=== PATIENT | female | born 1965 ===

== ENCOUNTER 2022-02-11 16:01 | Emergency (ER) | payer MEDICARE ==
[~2022-02-11] VITALS: Ht 167.6 cm; Wt 50.0 kg
[~2022-02-11 16:01] MED LIST: ATI0.5T PO; BUSP10TA11 PO; NICO-630 TOP; SULF1TAB45 PO; TEMA15CA PO; VENL-190 PO
[2022-02-11 16:36] LABS: CLARITY,URINE CLOUDY (Clear); COLOR,URINE YELLOW (Yellow); GLUCOSE, URINE NEGATIVE (Neg); KETONES,URINE 15 mg/dl (Neg); LEUKOCYTE ESTERASE ,URINE MODERATE (Neg); NITRITES, URINE POSITIVE (Neg); OCCULT BLOOD,URINE LARGE (Neg); PROTEIN,URINE 100 mg/dl (Neg); UROBILINOGEN,URINE 0.2 E.U/dL (0.2-1.0)
[2022-02-11 16:40] LABS: UA COLLECTION TYPE CLN CATCH MIDSTREAM
[2022-02-11 16:43] LABS: BACTERIA,URINE 4+ /HPF (Neg); RBC,URINE TNTC /HPF (0-2); SQUAMOUS EPITHELIAL CELL,UR FEW /LPF (FEW); WBC,URINE TNTC /HPF (0-4)
[2022-02-11 16:49] LABS: BASOPHILS % (AUTO) 0.3 % (0-1); EOSINOPHILS # (AUTO) 0.1 X10'3 (0-0.9); LYMPHOCYTES # (AUTO) 0.4 X10'3 (1.1-4.8); MONOCYTES # (AUTO) 1.5 X10'3 (0-0.9); PLATELET COUNT 214 X10'3 (140-440)
[2022-02-11 16:51] LABS: EOSINOPHILS % (AUTO) 0.7 % (0-6); HEMATOCRIT 37.2 % (35.0-45.0); HEMOGLOBIN 12.6 g/dl (12.0-16.0); LYMPHOCYTES % (AUTO) 3.9 % (21-51); MEAN CORPUSCULAR HEMOGLOBIN 30.5 PG (27.0-31.0); MEAN CORPUSCULAR HGB CONC 33.9 g/dL (33.0-36.5); MEAN CORPUSCULAR VOLUME 90.2 FL (78-98); MEAN PLATELET VOLUME 8.1 FL (7.4-10.4); MONOCYTES % (AUTO) 13.3 % (2-12); NEUTROPHILS # (AUTO) 9.3 X10'3 (1.8-7.7); NEUTROPHILS % (AUTO) 81.8 % (42-75); RED BLOOD COUNT 4.13 X10'6 (4.20-5.60); RED CELL DISTRIBUTION WIDTH 13.5 % (11.5-14.5); WHITE BLOOD COUNT 11.4 X10'3 (4.5-11.0)
[2022-02-11 16:58] LABS: ALANINE AMINOTRANSFERASE 26 U/L (12-78); ALBUMIN 3.1 G/DL (3.4-5.0); ALBUMIN/GLOBULIN RATIO 0.6 (1.1-1.5); ALKALINE PHOSPHATASE 106 IU/L (46-116); ANION GAP 13 (8-16); ASPARTATE AMINO TRANSFERASE 26 U/L (10-37); BILIRUBIN,TOTAL 1.4 MG/DL (0.1-1.0); BLOOD UREA NITROGEN 31 MG/DL (7-18); BUN/CREATININE RATIO 23.3 (6.6-38.0); CALCIUM 9.1 MG/DL (8.5-10.1); CHLORIDE 93 MMOL/L (99-107); CREATININE 1.33 MG/DL (0.40-0.90); GLUCOSE 114 MG/DL (70-104); LIPASE 68 U/L (73-393); POTASSIUM 3.8 MMOL/L (3.5-5.1); SODIUM 132 MMOL/L (135-145); TOTAL CARBON DIOXIDE 25.8 MMOL/L (24-32); eGFR 41 ML/MIN
[2022-02-11] MEDS ORDERED: proCHLORperazine 10 MG/2 ml inj IV ONE (18:00)
[2022-02-11] MEDS ORDERED: cefTRIAXone 1g/NS 100ml IVPB 100 ML IV ONE (18:00)
[2022-02-11] MEDS ORDERED: phenazopyridine 100mg tablet PO ONE (18:00)
[2022-02-11] MEDS ORDERED: ketorolac trometh. 30mg/ml inj. IV ONE (18:00)
[2022-02-11 18:22] LABS: PLATELET ESTIMATE NORMAL; TOTAL CELLS COUNTED 100
[2022-02-11] MEDS ORDERED: PROC-8 PO (19:17)
[2022-02-11] MEDS ORDERED: CIPR-202 PO (19:17)
[2022-02-11 20:04] VITALS: BP 95/60
== END 2022-02-11 20:08 | disposition home or self-care (01) ==
LOC: ER 16:01
DX: N39.0 Urinary tract infection, site not specified (principal); R11.2 Nausea with vomiting, unspecified; M54.89 Other dorsalgia; F41.9 Anxiety disorder, unspecified; F32.A Depression, unspecified; Z87.440 Personal history of urinary (tract) infections; Z90.710 Acquired absence of both cervix and uterus; Z56.0 Unemployment, unspecified; Z88.0 Allergy status to penicillin; Z88.8 Allergy status to other drugs, medicaments and biological substances; Z79.2 Long term (current) use of antibiotics; Z79.899 Other long term (current) drug therapy
CPT/HCPCS: 36415; 80053; 81001; 83690; 85007; 85025; 87088; 87186; 96365; 96375; 99284; J0696; J0780; J1885; 87077